=== PATIENT | male | born 2000 ===

== ENCOUNTER 2022-11-20 22:16 | Inpatient (IN) | payer MEDICAID ==
[~2022-11-20] VITALS: Ht 170.2 cm; Wt 76.7 kg
[2022-11-21] MEDS ORDERED: DiphenhydrAMINE HCL 50 MG/ML VIAL IM ONE
[2022-11-21] MEDS ORDERED: HALOPERIDOL LACTATE 5 MG/ML VIAL IM ONE
[2022-11-21] MEDS ORDERED: LORazepam 2 MG/ML VIAL IM ONE
[2022-11-21 00:08] LABS: ANION GAP 12 mmol/L (8-16); BASOPHILS % (AUTO) 0.3 % (0.0-2.0); CALCIUM, TOTAL 9.1 mg/dL (8.8-10.5); CARBON DIOXIDE 24 mmol/L (22-29); CHLORIDE 104 mmol/L (98-107); CREATININE 0.87 mg/dL (0.60-1.30); EOSINOPHILS % (AUTO) 0.5 % (1.0-6.0); GLOMERULAR FILTR. RATE CALC > 60 mL/min (>60); GLUCOSE,RANDOM 90 mg/dL (70-110); HEMATOCRIT 45.6 % (41-53); LYMPHOCYTES % (AUTO) 12.1 % (22.0-44.0); MEAN CORPUSCULAR HEMOGLOBIN 32.4 pg (26.0-34.0); MEAN CORPUSCULAR HGB CONC 35.2 G/dL (31.0-37.0); MEAN CORPUSCULAR VOLUME 92 fL (80-100); MONOCYTES # (AUTO) 0.5 K/uL (0.1-1.0); MONOCYTES % (AUTO) 6.1 % (2.0-9.0); NEUTROPHILS # (AUTO) 6.9 K/uL (1.8-7.7); RED BLOOD CELL COUNT(AUTO) 4.96 MIL/uL (4.50-5.90); RED CELL DISTRIBUTION WIDTH 12.9 % (11.5-14.5); SODIUM SERUM 140 mmol/L (136-145); UREA NITROGEN, BLOOD 28 mg/dL (7-18); WHITE BLOOD COUNT (AUTO) 8.5 K/uL (4.5-11.0)
[2022-11-21 00:14] LABS: ALANINE AMINOTRANSFERASE 24 U/L (12-78); ALBUMIN 4.5 g/dL (3.4-5.0); ALKALINE PHOSPHATASE 101 U/L (46-116); ASPARTATE AMINOTRANSFERASE 20 U/L (15-37); BILIRUBIN,TOTAL 0.9 mg/dL (0.1-1.0); TOTAL PROTEIN, SERUM 7.5 g/dL (6.4-8.2)
[2022-11-21 00:16] LABS: ALCOHOL, BLOOD (SERUM) 268 mg/dL (0-10)
[2022-11-21 00:41] LABS: GLUCOMETER DEV NAME(LOC) ER.6; GLUCOSE,POINT OF CARE 86 MG/DL (70-110)
[2022-11-21 00:45] LABS: PLATELET COUNT (AUTO) 270 K/uL (150-450)
[2022-11-21 01:26] LABS: COVID AG,FIA SOURCE NASOPHARYNGEAL
[2022-11-21 01:47] LABS: SARS-COV2 (COVID) ANTIGEN,FIA Negative (Negative)
[2022-11-21 07:41] LABS: GLUCOMETER DEV NAME(LOC) ER.6; GLUCOSE,POINT OF CARE 87 MG/DL (70-110)
[2022-11-21] MEDS ORDERED: HALOPERIDOL 5 MG TABLET PO PRN (17:45)
[2022-11-21] MEDS ORDERED: LORazepam 2 MG TABLET PO PRN (17:45)
[2022-11-21] MEDS ORDERED: ZOLPIDEM TARTRATE 10 MG TABLET PO PRN (17:45)
[2022-11-21 20:00] VITALS: BP 144/80; PULSE 78; RESP 18; TEMP 97.7
[2022-11-21 21:15] VITALS: BP 144/80; PULSE 78; RESP 18; TEMP 97.7; O2SAT 97
[2022-11-21 21:43] VITALS: BP 116/70; PULSE 61; RESP 18; TEMP 98.3
[2022-11-21 22:39] VITALS: BP 116/62; PULSE 71; RESP 18; TEMP 98
[2022-11-21 23:00] VITALS: BP 124/80; PULSE 91; RESP 18; TEMP 97.7
[2022-11-22] VITALS (7 sets, daily range): BP systolic 117–149; BP diastolic 66–98; PULSE 65–118; RESP 16–18; TEMP 97.7–98.3; O2SAT 97–99
[2022-11-22] MEDS ORDERED: ChlordiazePOXIDE HCL 25 MG CAPSULE PO PRN ×2 (07:00→15:00)
[2022-11-22] MEDS ORDERED: BENZOCAINE/MENTHOL LOZENGE PO PRN (08:45)
[2022-11-22] MEDS ORDERED: CloNIDine HCL 0.1 MG TABLET PO PRN (08:45)
[2022-11-22] MEDS ORDERED: ALBUTEROL SULFATE HFA 90 MCG/PUFF 8 GM INHALER IH PRN (08:45)
[2022-11-22] MEDS ORDERED: ONDANSETRON HCL 4 MG TABLET PO PRN (08:45)
[2022-11-22] MEDS ORDERED: IBUPROFEN 600 MG TABLET PO PRN (08:45)
[2022-11-22] MEDS ORDERED: MAGNESIUM HYDROXIDE SUSPENSION 30 ML UDCUP PO PRN (08:45)
[2022-11-22] MEDS ORDERED: LOPERAMIDE HCL 2 MG CAPSULE PO PRN (08:45)
[2022-11-22] MEDS ORDERED: PETROLATUM,WHITE 28 GM JELLY TP PRN (08:45)
[2022-11-22] MEDS ORDERED: DOCUSATE SODIUM 100 MG CAPSULE PO PRN (08:45)
[2022-11-22] MEDS ORDERED: BACITRACIN 28 GM OINTMENT TP PRN (08:45)
[2022-11-22] MEDS ORDERED: MAG HYDROX/AL HYDROX/SIMETH ES 30 ML SUSPENSION UDCUP PO PRN (08:45)
[2022-11-22] MEDS ORDERED: ACETAMINOPHEN 325 MG TABLET PO PRN (08:45)
[2022-11-22] MEDS ORDERED: OMEPRAZOLE 20 MG CAPSULE PO PRN (08:45)
[2022-11-22] MEDS: ChlordiazePOXIDE HCL 25 MG CAPSULE PO SCH ×2 (16:17→20:46)
[2022-11-23 08:33] VITALS: BP 105/60; PULSE 70; RESP 20; TEMP 97.6; O2SAT 99
[2022-11-23] MEDS: ChlordiazePOXIDE HCL 25 MG CAPSULE PO SCH ×4 (08:33→20:09)
[2022-11-23 10:17] VITALS: BP 105/60; PULSE 70; RESP 20; TEMP 97.6
[2022-11-23 10:23] LABS: HEMOGLOBIN A1C 4.5 % (3.8-5.6)
[2022-11-23 10:40] LABS: THYROID STIMULATING HORMONE 2.11 uIU/mL (0.36-3.74)
[2022-11-23 20:00] VITALS: BP 117/63; PULSE 66; RESP 18; O2SAT 99
[2022-11-23 23:30] VITALS: RESP 18
[2022-11-24] MEDS ORDERED: ChlordiazePOXIDE HCL 10 MG CAPSULE PO PRN (07:00)
[2022-11-24 08:19] LABS: CHOL/HDL RATIO 2.5 (4.2-7.3)
[2022-11-24 08:20] VITALS: BP 102/62; PULSE 70; RESP 19; TEMP 97.6; O2SAT 98
[2022-11-24] MEDS: ChlordiazePOXIDE HCL 10 MG CAPSULE PO SCH ×4 (08:37→20:32)
[2022-11-24 10:13] VITALS: BP 110/64; PULSE 72; RESP 18; TEMP 97.8
[2022-11-24 21:02] VITALS: BP 141/79; PULSE 67; RESP 18; TEMP 97.7; O2SAT 96
[2022-11-24 23:59] VITALS: RESP 18; TEMP 98
[2022-11-25] MEDS ORDERED: ChlordiazePOXIDE HCL 10 MG CAPSULE PO PRN (07:00)
[2022-11-25 09:08] VITALS: BP 115/59; PULSE 62; RESP 17; TEMP 97.5; O2SAT 100
== END 2022-11-25 11:51 | disposition home or self-care (01) | DRG 750 ==
LOC: EMS 22:17 → B2S 11-21 17:50
PROVIDERS: ADMIT Psychiatry & Neurology Psychiatry; ATTEND Psychiatry & Neurology Psychiatry
DX: F25.9 Schizoaffective disorder, unspecified (principal); R45.851 Suicidal ideations; Z20.822 Contact with and (suspected) exposure to COVID-19; F19.10 Other psychoactive substance abuse, uncomplicated; E16.2 Hypoglycemia, unspecified; F10.129 Alcohol abuse with intoxication, unspecified; Y90.8 Blood alcohol level of 240 mg/100 ml or more; G47.00 Insomnia, unspecified; K59.00 Constipation, unspecified; F41.9 Anxiety disorder, unspecified
CPT/HCPCS: 80053; 80061; 82962; 83036; 84443; 85025; 99291; G0480; J1200; J1630; J2060